=== PATIENT | male | born 1960 | race Caucasian/White ===

== ENCOUNTER 2016-12-18 21:41 | Emergency (ER) | payer BC ==
[2016-12-18] MEDS ORDERED: ASPIRIN 81 MG TABLET, CHEWABLE PO ONE (21:42)
[2016-12-18 22:17] LABS: ABSOLUTE BASOPHILS # (AUTO) 0.1 10^3/uL (0.0-0.2); ABSOLUTE EOSINOPHILS # (AUTO) 0.3 10^3/uL (0.0-0.6); ABSOLUTE LYMPHOCYTES (AUTO) 1.5 10^3/uL (0.5-4.7); ABSOLUTE MONOCYTES (AUTO) 0.8 10^3/uL (0.1-1.4); BASOPHILS % (AUTO) 1.1 % (0-2); EOSINOPHILS % (AUTO) 3.4 % (0-6); HEMATOCRIT 45.2 % (37.9-51.0); HEMOGLOBIN 15.8 g/dL (13.5-17.0); HGB HCT DIFFERENCE 2.2; LYMPHOCYTES % (AUTO) 17.4 % (13-45); MEAN CORPUSCULAR HEMOGLOBIN 30.1 pg (27.0-33.4); MEAN CORPUSCULAR HGB CONC 34.9 g/dL (32.0-36.0); MEAN CORPUSCULAR VOLUME 86 fl (80-97); MONOCYTES % (AUTO) 9.6 % (3-13); RED BLOOD COUNT 5.24 10^6/uL (4.35-5.55); RED CELL DISTRIBUTION WIDTH 13.5 % (11.5-14.0); SEGMENTED NEUTROPHILS % (AUTO) 68.5 % (42-78); WHITE BLOOD COUNT 8.8 10^3/uL (4.0-10.5)
--- NOTE | 2016-12-18 22:26 | RADIOLOGY REPORT (SQ) ---
EXAM DESCRIPTION: CHEST SINGLE VIEW COMPLETED DATE/TIME: 12/18/2016 10:18 pm REASON FOR STUDY: cp COMPARISON: 07/02/2014 EXAM PARAMETERS: NUMBER OF VIEWS: One view. TECHNIQUE: Single frontal radiographic view of the chest acquired. RADIATION DOSE: NA LIMITATIONS: None. FINDINGS: LUNGS AND PLEURA: Low lung volumes results in bronchovascular crowding. No opacities, mas ses or pneumothorax. No pleural effusion. MEDIASTINUM AND HILAR STRUCTURES: No masses. Contour normal. HEART AND VASCULAR STRUCTURES: Heart normal in size. Normal vasculature. BONES: No acute findings. HARDWARE: None in the chest. OTHER: No other significant finding. IMPRESSION: NO ACUTE RADIOGRAPHIC FINDING IN THE CHEST. TECHNICAL DOCUMENTATION: JOB ID: [id number]
[2016-12-18 22:36] LABS: ALANINE AMINOTRANSFERASE 51 U/L (21-72); ALBUMIN 4.5 g/dL (3.5-5.0); ALKALINE PHOSPHATASE 99 U/L (38-126); ANION GAP 14 (5-19); ASPARTATE AMINO TRANSFERASE 34 U/L (17-59); BILIRUBIN,DIRECT 0.4 mg/dL (0.0-0.4); BILIRUBIN,TOTAL 0.9 mg/dL (0.2-1.3); BLOOD UREA NITROGEN 24 mg/dL (7-20); CALCIUM 9.9 mg/dL (8.4-10.2); CARBON DIOXIDE 24 mmol/L (22-30); CHLORIDE 103 mmol/L (98-107); CREATINE KINASE 234 U/L (55-170); CREATININE RESULT 1.01 mg/dL (0.52-1.25); GLUCOSE 152 mg/dL (75-110); POTASSIUM 4.1 mmol/L (3.6-5.0); SODIUM 140.7 mmol/L (137-145); TOTAL PROTEIN 7.4 g/dL (6.3-8.2)
[2016-12-18 22:47] LABS: CREATINE KINASE MB 3.26 ng/mL (<4.55)
[2016-12-18 22:50] LABS: TROPONIN I < 0.012 ng/mL
--- NOTE | 2016-12-18 23:01 | ER Document Report ---
ED General - General Chief Complaint: Palpitations Stated Complaint: Palpitations Time Seen by Provider: 12/18/16 22:23 Notes: Patient is a 56-year-old male with a past medical history of hypertension and anxiety who presents with palpitations and a feeling of lightheadedness. States his symptoms started after witnessing his father undergoing CPR. Patient denies any associated chest pain or shortness of breath stating clearly "I would absolutely tell you if I had one of those symptoms". Patient states that he feels that his symptoms are likely related to anxiety as he has a history of prior panic attacks with similar symptoms. Patient states he overall feels much better at this time after taking 0.5 mg of oral lorazepam that is prescribed him for similar episodes. He denies any ongoing symptoms at time of my assessment. He has no history of a DVT or pulmonary embolus. He denies any pleuritic pain, shortness of breath, headache, neck pain or altered mental status. TRAVEL OUTSIDE OF THE [place] IN LAST 30 DAYS: No - Related Data Allergies/Adverse Reactions: No Known Allergies Allergy (Verified 09/21/11 22:46) Home Medications: Current Home Medications Lisinopril [Lisinopril] 1 tab PO QAM 12/18/16 [History] Rosuvastatin Calcium [Rosuvastatin Calcium] 1 tab PO DAILY 12/18/16 [History] Past Medical History - General Information source: Patient - Social History Smoking Status: Never Smoker Chew tobacco use (# tins/day): No Frequency of alcohol use: Occasional Drug Abuse: None Lives with: Spouse/Significant other Family History: Reviewed & Not Pertinent - Past Medical History Cardiac Medical History: Reports: Hx Hypercholesterolemia, Hx Hypertension Past Surgical History: Reports: Hx Appendectomy, Hx Orthopedic Surgery - left knee - Immunizations Hx Diphtheria, Pertussis, Tetanus Vaccination: Yes Review of Systems - Review of Systems Notes: Constitutional: Negative for fever. HENT: Negative for sore throat. Eyes: Negative for visual changes. Cardiovascular: Negative for chest pain. Positive for palpitations Respiratory: Negative for shortness of breath. Gastrointestinal: Negative for abdominal pain, vomiting or diarrhea. Genitourinary: Negative for dysuria. Musculoskeletal: Negative for back pain. Skin: Negative for rash. Neurological: Negative for headaches, weakness or numbness. 10 point ROS negative except as marked above and in HPI. Physical Exam - Vital signs Vitals: Temp 98.7 F 12/18/16 22:00 Interpretation: Tachycardic Notes: PHYSICAL EXAMINATION: GENERAL: Well-appearing, well-nourished and in no acute distress. HEAD: Atraumatic, normocephalic. EYES: Pupils equal round and reactive to light, extraocular movements intact, sclera anicteric, conjunctiva are normal. ENT: nares patent, oropharynx clear without exudates. Moist mucous membranes. NECK: Normal range of motion, supple without lymphadenopathy LUNGS: Breath sounds clear to auscultation bilaterally and equal. No wheezes rales or rhonchi. HEART: Regular rate and rhythm without murmurs ABDOMEN: Soft, nontender, normoactive bowel sounds. No guarding, no rebound. No masses appreciated. EXTREMITIES: Normal range of motion, no pitting or edema. No cyanosis. NEUROLOGICAL: No focal neurological deficits. Moves all extremities spontaneously and on command. PSYCH: Normal mood, normal affect. SKIN: Warm, Dry, normal turgor, no rashes or lesions noted. Course - Re-evaluation Re-evalutation: 12/18/16 22:58 Patient presents with palpitations and lightheadedness with associated panic after witnessing his father being coded here in the emergency department. Contrary to initial triage assessment, patient is adamant that he never experienced any form of chest pain, shortness of breath, nausea or diaphoresis. Patient notes that his underlying panic disorder and after witnessing his father undergoing chest compressions he began to feel extremely anxious with associated palpitations. He took 0.5 mg of his lorazepam that is prescribed to him for this and states that this has significantly improved his symptoms. At time of my assessment he denies any ongoing symptoms whatsoever. Laboratories including troponin are unremarkable. EKG shows sinus tachycardia although this is resolved by time of my assessment. I do not see any indication for further workup as this history appears most consistent with an acute panic reaction. Based on exam and history do not suspect ACS, aortic dissection, acute pulmonary embolus, pneumothorax, or acute pneumonia. At this time will discharge with return precautions and follow-up recommendations. Verbal discharge instructions given a the bedside and opportunity for questions given. Medication warnings reviewed. Patient is in agreement with this plan and has verbalized understanding of return precautions and the need for primary care follow-up in the next 24-72 hours. - Vital Signs Vital signs: Temp Pulse Resp BP Pulse Ox 97.9 F 17 144/82 H 98 12/18/16 23:15 12/18/16 23:01 12/18/16 23:01 12/18/16 23:01 - Laboratory Result Diagrams: 12/18/16 22:01 12/18/16 22:01 Laboratory results interpreted by me: 12/18/16 22:01 BUN 24 H Glucose 152 H Creatine Kinase 234 H - Diagnostic Test Radiology reviewed: Image reviewed, Reports reviewed Radiology results interpreted by me: 12/18/16 23:00 Chest x-ray: No acute infiltrate or pneumothorax - EKG Interpretation by Me Additional EKG results interpreted by me: 12/18/16 23:00 Sinus tachycardia. Rate 116. No ST elevation or depressions. QTC is 439 Discharge - Discharge Clinical Impression: Heart palpitations, Anxiety reaction Condition: Good Disposition: HOME, SELF-CARE Additional Instructions: Your labs, chest x-ray and EKG are reassuring. Return if you develop chest pain , shortness of breath, pass out, or have any other symptoms that are worrisome to you.
[2016-12-18 23:22] VITALS: BP 144/82
--- NOTE | 2016-12-19 08:04 | EKG REPORT ---
SEVERITY:- OTHERWISE NORMAL ECG - SINUS TACHYCARDIA : Confirmed by: Fernando Weathers MD 19-Dec-2016 08:03:43
== END 2016-12-18 23:20 | disposition home or self-care (01) ==
LOC: ER 21:41
DX: F41.1 Generalized anxiety disorder (principal); F41.0 Panic disorder [episodic paroxysmal anxiety]; R00.2 Palpitations; I10 Essential (primary) hypertension; R42 Dizziness and giddiness; R00.0 Tachycardia, unspecified
CPT/HCPCS: 36415; 71010; 80053; 82550; 82553; 84484; 85025; 93005; 93010; 99285